=== PATIENT | male | born 1980 | race Caucasian/White ===

== ENCOUNTER 2017-06-21 01:43 | Inpatient (IN) | payer BC ==
[~2017-06-21] VITALS: Ht 182.9 cm; Wt 117.0 kg
--- NOTE | 2017-06-21 02:34 | NUR ---
PT IS A&O X4, FOLLOWS COMMANDS, ABLE TO MAKE NEEDS KNOWN. PT STATED THAT HE WAS HAVING INTERCOURSE, AND WHEN HE TRIED REINSERT HIS PENIS, HE FELT HIS PENIS BEND. NO SCROTAL EDEMA, NO PENILE DISCHARGE, SWELLING NOTED TO THE SHAFT OF THE PENIS, SMALL DARK DISCOLORATION NOTED. PT STATES THE PAIN IS A 3/10, DISCOMFORT HE DISCRIBES IT.
--- NOTE | 2017-06-21 02:41 | NUR ---
DR. COOK AT BEDSIDE.
--- NOTE | 2017-06-21 02:43 | NUR ---
DR COOK AT BEDSIDE FRO MSE
--- NOTE | 2017-06-21 02:51 | NUR ---
PER PT STATES THAT HE DOES NOT TAKE ANY MEDICATIONS AT HOME.
--- NOTE | 2017-06-21 03:06 | NUR ---
JOHN SWAN AT BEDSIDE FOR EKG.
[2017-06-21 03:14] LABS: UA SPECIFIC GRAVITY 1.015 (1.005-1.035); microscopic required? YES; urine erythrocyte TRACE (NEGATIVE)
[2017-06-21 03:20] LABS: BASOPHIL % 0.4 % (0-2); PLATELET COUNT 296 x10^3mcL (130-400); RED CELL DISTRIBUTION WIDTH 13.4 % (11.5-14.5)
[2017-06-21 03:22] LABS: CALCIUM 8.4 mg/dL (8.5-10.1); CARBON DIOXIDE 25.2 mmol/L (21-32); CHLORIDE SERUM 105 mmol/L (98-107); CREATININE SERUM 0.9 mg/dL (0.7-1.3); GFR1 > 60 mL/min; GLUCOSE SERUM 117 mg/dL (74-106); POTASSIUM SERUM 3.7 mmol/L (3.5-5.1); SODIUM SERUM 141 mmol/L (136-145)
[2017-06-21 03:26] LABS: ALBUMIN 3.6 g/dL (3.4-5.0); ALKALINE PHOSPHATASE 102 U/L (46-116); ALT/SGPT 279 U/L (16-63); AST/SGOT 146 U/L (15-37); BILIRUBIN TOTAL 0.21 mg/dL (0.20-1.00); TOTAL PROTEIN, SERUM 7.6 g/dL (6.4-8.2)
--- NOTE | 2017-06-21 04:55 | NUR ---
REPORT GIVEN TO JUSTUS MOELLER. QUESTIONS AND CONCERNS ADDRESSED.
--- NOTE | 2017-06-21 04:57 | NUR ---
WEIGHT ANALYST AT BEDSIDE FOR XRAY.
--- NOTE | 2017-06-21 05:07 | NUR ---
PT TO 2 SOU[facility]IA [facility]AN ACCOMPANIED BY NURSE. PT IS ALERT/ORIENTED X4. PT STATES WAS HAVING SEX WITH HIS ABOUT "11:00PM" LAST NIGHT. PT STATES HE "PULLED TOO FAR OUT AND WENT TO GO BACK IN AND FELT IT BEND". PT STATED AT THE TIME THIS HAPPENED THE "PAIN WAS A 3/10". PT STATED HIS CALLED THE NURSES HOT IN WHICH WAS TOLD TO GO TO THE ER. SEE SKIN ASSESSMENT FOR SKIN INTEGRITY. PT ASSESSED; SEE NSG FLOWSHEET. SIDE RAILS UP X2. CALL LIGHT WITHIN REACH. BED IN LOWEST POSITION AND LOCKED. PT ORIENTED TO ROOM. WILL CONTINUE TO MONITOR. PT NO C/O PAIN AT THIS TIME OF ASSESSMENT.
[2017-06-21 05:29] VITALS: BP 122/65
[2017-06-21 05:42] LABS: MAGNESIUM 2.4 mg/dL (1.8-2.4); PHOSPHOROUS 4.5 mg/dL (2.5-4.9)
[2017-06-21 05:50] VITALS: BP 122/65
[2017-06-21 05:54] LABS: FREE T4 1.2 ng/dL (0.76-1.46); FREE THYROXINE INDEX 3.4 ug/dL (1.4-4.5); T3 TOTAL 1.56 ng/mL; T4(THYROXINE) 9.6 ug/dL (4.7-13.3)
--- NOTE | 2017-06-21 07:18 | NUR ---
PT AWAKE. NO C/O PAIN. WILL CONTINUE TO MONITOR
--- NOTE | 2017-06-21 08:00 | NUR ---
RECEIVED PATIENT FROM THE DATA QUALITY CONSULTANT AND IS ALERT AND ORIENTED TIMES FOUR. PATIENT HAS NO COMPLAINTS OF PAIN AT THIS TIME AND IS AWAITING TO SEE DR GRAHAM FOR HIS INJURY. PATIENT IS AMBULATORY AND HAS BEEN ADMITTED BY THE PREVIOUS SHIFT AND CONTINUED ON NS AT 150CC PER HOUR. PATIENT HAS NEGATIVE UA AND FOR ABDOMINAL ULTRASOUND THIS AM. FOR SMOKING CESSATION AND WILL GIVE PAPERWORK INDICATED.
[2017-06-21 08:30] VITALS: BP 120/72
--- NOTE | 2017-06-21 09:15 | NUR ---
SEEN BY THE INTERNS AND DR VILLELA AND PLAN OF CARE DISCUSSED. PATIENT FOR SURGERY TODAY. VITALS AT [facility] AT97.4, 88. 18, 122/65, 963% ON ROOM AIR. DANIELLE SULLIVAN NOTED LABS OF AST AT 146, ALT AT 279, WBC AT 11.9, CA AT 8.4, AND GLUCOSE AT 117. PATIENT HAD A BLOOD ALCOHOL LEVEL OF 0.179 ON ADMISSION. NO INDICATION OF DT OR WITHDRAWLS AT TIS TIME.
--- NOTE | 2017-06-21 11:50 | NUR ---
PATIENT HAS JUST COMPLETED HIS AIMEE WASH AND IS IN A GOWN READY FOR SURGERY. CALL RECEIVED FROM THE OR CREW AND THE DOCTOR IS GOING TO BE LATE AND WILL ARRIVE AT AROUND 1400 INSTEAD OF THE 1200 NOON ORIGNALLY PLANNED. WILL ADVISE THE PATIENT INDICATED. AT BEDSIDE AND ATTENTIVE WITH CARE.
[2017-06-21 12:20] VITALS: BP 123/70
--- NOTE | 2017-06-21 14:58 | NUR ---
ADVISED THE PATINET THAT THE SURGEY HAS BEEN MOVED BACK AGAIN TO AROUND 1500. PATIENT HAS BEEN NPO AND IS HEPLOCKED AT THIS TIME FOR THE PROCEDURE. PATIENT HAS HAD THE AIMEE WASH AND IS READY WHEN THE OR TEAM ARRIVES. AT BEDSIDE AND ATTENTIVE WITH CARE.
--- NOTE | 2017-06-21 15:30 | NUR ---
AFTER TWO DELAYS PAIENT DOWN TO SURGERY AT THIS TIME. AT BEDSIDE AT TIME OF TRANSFER.
--- NOTE | 2017-06-21 18:33 | NUR ---
COMPUTER TECHNOLOGY TRAINER ADVISED NEEDED DIET FOR THE PATEINT WHO JUST RETURNED TO THE FLOOR POST SURGERY. DRESSING OF KERLIX ON THE PENIS AND SOME SLIGHT DRAINAGE NOTED. CICI FLORENTINO HE IS NOT FEELING PAIN AT THIS TIME BUT WAS NAUSEATED. RECIEVED ZOFRAN IN THE RECOVERY WELL DILAUDID FOR PAIN. PATIENT HAS AT BEDSIDE AND RECEIVED REPORT AND THE PATIENT HAD A CIRCULATORY INCISION AND WITH A CLOT AND IMPERFECTION SEEN AND CLOT REMOVED AND SUTURED. PATIENT TOLERATED WELL AND THE SURGEON CALLED AND ADVISED TO HAVE THE COMPUTER TECHNOLOGY TRAINER WRITE ORDERS ON THE PATIENT POST OPERATIVELY. PATIENT ATTENTIVE WITH CARE AND NO INDICATION OF FUTURE ISSUES EXPECTED. PATEINT PER THE COMPUTER TECHNOLOGY TRAINER WILL BE GOING HOME PROBALLY TOMORROW ON ANTIBIOTICS. RECIEVED ANCEF IN THE RECOVERY ROOM. VITALS ARE STABLE AT THIS TIME. WILL ENDORSE TO THE NEXT SHIFT INDICATED.
[2017-06-21 18:40] VITALS: BP 139/71
--- NOTE | 2017-06-21 19:53 | NUR ---
Awake and verbally responsive. No resp.distress noted. Denies pain at this time. Penile surgical dressing intact. No bleeding noted. Will cont.to monitor. Call light within reach. Hasn't voided yet. Will try to void per pt.
[2017-06-21 21:25] VITALS: BP 122/68
--- NOTE | 2017-06-21 22:49 | NUR ---
Resting at this time. Able to void without difficulty.
--- NOTE | 2017-06-22 04:16 | NUR ---
Afebrile. No significant change in condition noted. Ambulated. Voided well. Denies n/v. Medicated as ordered with norco with help.
[2017-06-22 06:05] VITALS: BP 102/46
[2017-06-22 06:35] LABS: CALCIUM 7.8 mg/dL (8.5-10.1); CARBON DIOXIDE 25.1 mmol/L (21-32); CHLORIDE SERUM 106 mmol/L (98-107); GFR1 > 60 mL/min; GLUCOSE SERUM 159 mg/dL (74-106); POTASSIUM SERUM 3.9 mmol/L (3.5-5.1); SODIUM SERUM 140 mmol/L (136-145)
[2017-06-22 06:37] LABS: BASOPHIL % 0.3 % (0-2); PLATELET COUNT 250 x10^3mcL (130-400); RED CELL DISTRIBUTION WIDTH 13.9 % (11.5-14.5)
--- NOTE | 2017-06-22 07:20 | NUR ---
RECEIVED PATIENT AWAKE/ALERT IN BED NO DISTRESS NOTED, DENIES PAIN AT THIS TIME. POC EXPLAINED. INFORM DOCTOR ROUND BETWEEN 8-9 AM. IV INTACT; CALL LIGHT WITHIN REACH.
--- NOTE | 2017-06-22 09:17 | NUR ---
PATIENT LAYING IN BED WITH VISITOR AT BEDSIDE, STATE PAIN IS TOLERABLE. ALL DUE MEDS GIVEN. NEEDS ATTENDED. CONT TO MONITOR.
[2017-06-22 09:49] VITALS: BP 125/71
--- NOTE | 2017-06-22 10:53 | NUR ---
PATIENT RESTING IN BED STATE PAIN TO PENILE 5/10. NORCO 1 TAB PO GIVEN, JUICES AND ICE GIVEN PER REQUEST. CONT TO MONITOR.
[2017-06-22] MEDS ORDERED: LIPI10 PO (12:06)
[2017-06-22 12:09] VITALS: BP 125/71
[2017-06-22] MEDS ORDERED: KEF250 PO ×2 (12:15→13:16)
[2017-06-22] MEDS ORDERED: LAC PO (12:17)
--- NOTE | 2017-06-22 12:57 | NUR ---
DR. GALEANA SEEN PATIENT AT BEDSIDE, UPDATE PATIENT ON DISCHARGE MEDS/WOUND CARE.
--- NOTE | 2017-06-22 13:40 | NUR ---
PATIENT LAYING IN BED WITH PARVIZ SALAZAR AT BEDSIDE; INFORM PATIENT AND PARVIZ WILL TEACH DRESSING CHANGE PRIOR TO D/C. SUPPLIES AT BEDSIDE; INSTRUCT PATIENT TO REMOVING DRESSING; USE NS TO WET GAUZES TO LOOSEN; CLEANSE WITH NS PAD DRY COVER WITH NON-ADHESIVE AND KERLIX WRAP AND TAPE. PATIENT TOLERATED WELL. DR. GALEANA AT BEDSIDE UPDATE ON PT'S CONDITION AND APPT. NEEDS ANTICIPATED.
--- NOTE | 2017-06-22 14:19 | NUR ---
PATIENT ALREADY DRESS WITH FIANCE AT BEDSIDE, DISCHARGE INSTRUCTION AND PRESCRIPTIONS EXPLAINED, QUESTIONS ANSWER. CALL SENIOR COPYWRITER TO WHEEL PATIENT OUT; BELONGINGS WITH FIANCE.
== END 2017-06-22 14:20 | disposition home or self-care (01) | DRG 907 ==
LOC: ED 01:43 → DU 04:35 → MU 06-22 11:11
PROVIDERS: Emergency Medicine; Urology; ADMIT Family Medicine
PROC: 0VQS0ZZ Repair Penis, Open Approach (ICD-10-PCS; principal; 2017-06-21 12:30)
DX: S39.840A Fracture of corpus cavernosum penis, initial encounter (principal); G92 Toxic encephalopathy; E87.1 Hypo-osmolality and hyponatremia; X58.XXXA Exposure to other specified factors, initial encounter; F12.90 Cannabis use, unspecified, uncomplicated; F10.129 Alcohol abuse with intoxication, unspecified; Y90.9 Presence of alcohol in blood, level not specified; E78.5 Hyperlipidemia, unspecified; D72.829 Elevated white blood cell count, unspecified; Z53.29 Procedure and treatment not carried out because of patient's decision for other reasons; R74.0 Nonspecific elevation of levels of transaminase and lactic acid dehydrogenase [LDH]; R73.03 Prediabetes; Y93.89 Activity, other specified; Y92.013 Bedroom of single-family (private) house as the place of occurrence of the external cause; Z90.89 Acquired absence of other organs; Z98.52 Vasectomy status
CPT/HCPCS: 82962; 83880; 84439; 94150; G0480; J0690; J1170; J2250; J2270; J2405; J2704; J3010; J7030; J7120; Q0092

== ENCOUNTER 2018-09-20 17:45 | Emergency (ER) | payer BC ==
[~2018-09-20] VITALS: Ht 182.9 cm; Wt 112.5 kg
[~2018-09-20 17:45] MED LIST: KEF250 PO; LAC PO; LIPI10 PO
[2018-09-20 17:59] VITALS: Ht 182.9 cm; Wt 112.5 kg
[2018-09-20 19:57] LABS: BASOPHIL % 0.2 % (0-2); PLATELET COUNT 214 x10^3mcL (130-400); RED CELL DISTRIBUTION WIDTH 13.9 % (11.5-14.5)
[2018-09-20 20:08] LABS: CALCIUM 8.6 mg/dL (8.5-10.1); CARBON DIOXIDE 25.7 mmol/L (21-32); CHLORIDE SERUM 104 mmol/L (98-107); CREATININE SERUM 0.8 mg/dL (0.7-1.3); GFR1 > 60 mL/min; GLUCOSE SERUM 134 mg/dL (74-106); SODIUM SERUM 140 mmol/L (136-145)
[2018-09-20 20:13] LABS: ALBUMIN 3.5 g/dL (3.4-5.0); ALKALINE PHOSPHATASE 123 U/L (46-116); ALT/SGPT 175 U/L (16-63); AST/SGOT 133 U/L (15-37); BILIRUBIN TOTAL 0.39 mg/dL (0.20-1.00); TOTAL PROTEIN, SERUM 7.9 g/dL (6.4-8.2)
[2018-09-20 20:45] LABS: AMPHETAMINE QUAL UR NONE DETECTED (See below)
[2018-09-20 22:48] VITALS: BP 141/90
== END 2018-09-20 22:48 | disposition home or self-care (01) ==
LOC: ED 17:45
PROVIDERS: Emergency Medicine
DX: F43.20 Adjustment disorder, unspecified (principal); F10.10 Alcohol abuse, uncomplicated; Z90.89 Acquired absence of other organs; Z98.52 Vasectomy status
CPT/HCPCS: 36415; G0480